=== PATIENT | male | born 1940 | race Caucasian/White ===

== ENCOUNTER → 2019-03-30 | Outpatient (CLI) | payer OTHER ==
[~2019-03-30] VITALS: Ht 175.3 cm; Wt 74.8 kg
[~2019-03-30] MED LIST: ASPIR 8181 MG PO; CILOSTAZOL 100100 M1 PO; COZAAR 25 MG TA25 M1 PO; LIPITOR 20 MG T20 M1 PO; NEURONTIN 300300 M1 PO; NEURONTIN600 MG PO; NORVASC5 MG PO; PLAVIX 75 MG TA75 M1 PO; RABEPRAZOLE SOD20 MG PO; ZYLOPRIM300 MG PO
--- NOTE | 2019-03-31 15:37 | P ---
[facility] [place] [place] [address] PROCEDURE REPORT Name: ANTIONETTE BETTENCOURT Room #: REG [facility]#: [id number] Admission: 03/30/19 ������������������ Attend Phys: Juan José Nelson MD Discharge: ������������������ Date of : 40 Report #: [id number] THIS REPORT FOR: //name// CC: Azam Nelson OUTPATIENT UPPER ENDOSCOPY REPORT BRIEF HISTORY: The patient is a 78-year-old male with a history of Aponte esophagus for surveillance. PREOPERATIVE DIAGNOSIS: Aponte esophagus. POSTOPERATIVE DIAGNOSES: 1. A short segment Aponte esophagus. 2. Small hiatus hernia. 3. Diffuse gastritis. MEDICATIONS: Deep sedation with propofol per anesthesia. SPECIMEN: Biopsies of Aponte esophagus. ESTIMATED BLOOD LOSS: 3 mL. PROCEDURE: EGD with biopsy. FINDINGS: Prior to propofol sedation, procedure of upper endoscopy was discussed with the patient as well as potential risks and its complications. He indicates he understands and desires to proceed. DESCRIPTION OF PROCEDURE: With the patient in left lateral decubitus position, the Olympus video endoscope was inserted in the cervical esophagus under direct vision without difficulty. Examination of this organ through its entire length revealed the normal esophageal mucosa down to the squamocolumnar junction. At the squamocolumnar junction, it was noted to be moderately irregular, especially on one wall of the esophagus. There was a very irregular squamocolumnar junction and then several islands of gastric-type mucosa in the distal esophagus. This was not completely circumferential and involved less than 2 cm in the distal esophagus in terms of length. Multiple biopsies were obtained. I also might point out the mucosa was flat. No ulcers, strictures, or masses were seen. Random biopsies obtained in the Aponte mucosa. Scope was advanced into a 2-3 cm sliding type hiatus hernia. Mucosa in the hernia was unremarkable. The scope was then advanced in the stomach and was examined on the end view as well as retroflexed views. There was a pattern of a diffuse gastritis. No ulcers or erosions were seen. Biopsies in the past were negative for H. pylori. Upon retroflexion, no mass lesions were seen. The pylorus, duodenal bulb, and [facility] [address] [place] [address] PROCEDURE REPORT Name: ANTIONETTE BETTENCOURT Room #: REG [facility].#: [id number] Admission: 03/30/19 ������������������ Attend Phys: Juan José Nelson MD Discharge: ������������������ Date of : 40 Report #: [id number] postbulbar duodenal sweep were inspected and noted to be unremarkable. At that point, the scope was slowly withdrawn and careful circumferential views confirmed the above findings. The patient tolerated the procedure well. CONDITION OF THE PATIENT UPON DISCHARGE: Following procedure, the patient was drowsy and will be discharged home when fully ambulatory. INSTRUCTIONS TO THE PATIENT AND FAMILY AT THE TIME OF DISCHARGE: Biopsies obtained of the Aponte is noted. We will follow up on pathology. If there is no evidence of dysplasia, he should return in 3 years for a surveillance exam. If there is evidence of dysplasia, further intervention or evaluation may be required. He should continue with his PPI daily for control of reflux symptoms. He will follow up with Dr. Azam Hoffman and proceed with colonoscopy at this time. ��������������������������������������������� <ELECTRONICALLY SIGNED> ���������������������������������������� By: Juan José Nelson MD ��������������������������������������������� 03/31/19 1537 [id number] Juan José Nelson MD /nt
--- NOTE | 2019-03-31 15:37 | P ---
[facility] [place] [address] [place] [address] PROCEDURE REPORT Name: ANTIONETET BETTENCOURT Room #: REG [facility]#: [id number] Admission: 03/30/19 ������������������ Attend Phys: Juan José Nelson MD Discharge: ������������������ Date of : 40 Report #: [id number] THIS REPORT FOR: //name// CC: KAIN Nelson OUTPATIENT COLONOSCOPY REPORT BRIEF HISTORY: The patient is a 78-year-old male for high risk screening. He has a prior a prior history of 5 adenomas for high risk screening. PREOPERATIVE DIAGNOSIS: High risk screening colonoscopy. POSTOPERATIVE DIAGNOSES: 1. Multiple colon polyps. 2. Mild to moderate sigmoid diverticulosis coli. 3. Small internal hemorrhoids. MEDICATIONS: Deep sedation with propofol per anesthesia. SPECIMENS: 1. Sessile polyp at 70 cm. 2. Diminutive polyp, cecum. 3. Sessile polyp, proximal ascending colon. 4. Diminutive polyp, 40 cm. ESTIMATED BLOOD LOSS: 3 mL. PROCEDURE: Colonoscopy to cecum and terminal ileum with snare polypectomy and biopsy. FINDINGS: Prior to propofol sedation, procedure of colonoscopy discussed with the patient as well as potential risks and its complications. He indicates he understands and desires to proceed. DESCRIPTION OF PROCEDURE: With the patient in left lateral decubitus position, digital examination was completed, which revealed no abnormalities. Subsequently, the Olympus video colonoscope was introduced in the rectum, advanced under direct vision to the cecum. Done with minimal difficulty. The cecum was identified by the ileocecal valve and the appendiceal orifice. I was able to advance the scope into the distal segment of the terminal ileum, which was inspected and noted to be unremarkable. At that point, the scope was slowly withdrawn and careful circumferential views obtained including retroflexion of the scope in the ascending colon. Upon slow withdrawal of the scope, the prep was noted to be excellent. The mucosa was within normal limits, normal vascular pattern, normal light reflex. Upon withdrawal of the scope, he was found to [facility] [address] [place] [address] PROCEDURE REPORT Name: ANTIONETTE BETTENCOURT Room #: REG [facility].#: [id number] Admission: 03/30/19 ������������������ Attend Phys: Juan José Nelson MD Discharge: ������������������ Date of : 40 Report #: [id number] have a diminutive polyp and the cecum was removed with biopsy forceps. In the very proximal ascending colon was a linear polyp. It was about 8-10 mm in length and about 3-4 mm in width and removed in a piecemeal fashion with cold snare and biopsy forceps. The scope was further withdrawal, no additional abnormalities were seen until the descending colon was reached and at 70 cm, a somewhat bulky 5-6 mm sessile polyp was seen and removed by cold snare polypectomy. Scope was further withdrawn and no additional abnormalities were seen until the sigmoid colon was reached, at which point a diminutive polyp was seen and removed with biopsy forceps. Also, he was noted to have moderately severe diverticular disease without endoscopic evidence of diverticulitis. The scope was withdrawn in the rectum, but upon retroflexion, small hemorrhoids were seen. Scope was withdrawn. The patient tolerated the procedure well. CONDITION OF THE PATIENT UPON DISCHARGE: Following procedure, the patient drowsy, aroused, conversant and will be discharged home when fully ambulatory. INSTRUCTIONS TO THE PATIENT AND FAMILY AT THE TIME OF DISCHARGE: This patient has a history of 5 adenomas lifetime, 4 polyps were identified and removed today. We will follow up on the path and make further recommendations. If 3 or more adenomas, he should return in 3 years. Otherwise, he should return for followup in 5 years. Last colonoscopy was approximately 5 years ago. Withdrawal time from the cecum was 10 minutes 37 seconds. ��������������������������������������������� <ELECTRONICALLY SIGNED> ���������������������������������������� By: Juan José Nelson MD ��������������������������������������������� 03/31/19 1537 [id number] Juan José Nelson MD /nt
--- NOTE | 2019-04-01 19:06 | PATH ---
[facility] [address] [place] [address] PATHOLOGY RPT PROCEDURE Name: CHARLIE DORANTES Room #: REG [facility].#: [id number] ������������������ Admission: 03/30/19 ������������������ Date of : 40 Discharge: Report #: [id number] Path Case #: [id number] [facility] Accession Number: [id number] . 01 Material submitted: . PART A: esophagus - BIOPSY DISTAL ESOPHAGUS HX BARRETTS. Modifiers: distal PART B: colon - POLYP AT 70CM PART C: cecum - BIOPSY POLYP AT CECUM PART D: colon - POLYP AT PROXIMAL ASCENDING COLON. Modifiers: proximal, ascending PART E: colon - BIOPSY POLYP AT 40CM . 01 Clinical history: . Preop DX: Hx: Polyps, Barretts esophagus Postop DX: Barretts esoph, hiatus hernia, gastritis, colon polyps, diverticulosis, hemorrhoids . 02 Diagnosis: A. Gastroesophageal mucosa, distal esophagus history of Aponte's, endoscopic biopsy: - Specialized columnar epithelium with intestinal metaplasia, consistent with Aponte's metaplasia. - Negative for dysplasia. - Squamous mucosa with mild esophagitis. . B. Polyp, at 70 cm, endoscopic biopsy: - Tubular adenoma. - Negative for high-grade dysplasia. . C. Polyp, at cecum, endoscopic biopsy: - Tubular adenoma. - Negative for high-grade dysplasia. . D. Polyp, at proximal ascending colon, endoscopic biopsy: - Tubular adenoma. - Negative for high-grade dysplasia. . E. Polyp, at 40 cm, endoscopic biopsy: - Tubular adenoma. - Negative for high-grade dysplasia. . 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 02 Electronically signed: . Lo Valadez MD, Pathologist NPI- [id number] [address] [address] PATHOLOGY RPT PROCEDURE Name: CHARLIE DORANTES Room #: REG [facility]#: [id number] ������������������ Admission: 03/30/19 ������������������ Date of : 40 Discharge: Report #: [id number] Path Case #: [id number] . 01 Gross description: . A. Received in formalin labeled "Charlie Dorantes, BX distal esophagus Hx Barretts," are five fragments of -brown soft tissue measuring 1.0 x 0.6 x 0.2 cm in aggregate dimensions and ranging from 0.2 to 0.6 cm in maximum dimension. The specimen is submitted entirely in cassette A1. . B. Received in formalin labeled "Charlie Dorantes, polyp at 70 cm," are three segments of -brown soft tissue measuring 0.8 x 0.7 x 0.3 cm in aggregate dimensions and ranging from 0.3 to 0.8 cm in maximum dimension. The largest segment is inked and trisected, and the specimen is submitted entirely in cassette B1. . C. Received in formalin labeled "Senthil Dorantesd, BX polyp at cecum," is a segment of -brown soft tissue measuring 0.5 x 0.2 x 0.2 cm in greatest dimensions. The specimen is submitted entirely in cassette C1. . D. Received in formalin labeled "SegunchSenthild, polyp at proximal ascending colon," are multiple fragments of soft tissue measuring 1.4 x 0.8 x 0.3 cm in aggregate dimensions and ranging from 0.1 to 0.9 cm in maximum dimension. The specimen is submitted entirely in cassette D1. The smallest fragments may not survive processing. . E. Received in formalin labeled "Senthil Dorantesd, BX polyp at 40 cm," is a segment of -brown soft tissue measuring 0.4 x 0.3 x 0.2 cm in greatest dimensions. The specimen is submitted entirely in cassette E1. (DAC; 03/31/2019) XDC/XMA 03/31/2019 [facility] . 02 Pathologist provided ICD-10: K22.70, K20.9, D12.6, D12.0, D12.2 . 02 CPT . 593701, 228559, 504114, 855127, 091920 Specimen Comment: A courtesy copy of this report has been sent to Specimen Comment: [phone], . Specimen Comment: Report sent to / DR MEHTA Performed at: [address], [place], [place] [id number] MD Miguel Torres MD Phone: [phone] Performed at: [address] [id number] MD Lo Valadez MD Phone: [phone]
== END | disposition home or self-care (01) ==
LOC: GI 06:38
DX: Z12.11 Encounter for screening for malignant neoplasm of colon (principal); D12.4 Benign neoplasm of descending colon; D12.0 Benign neoplasm of cecum; D12.2 Benign neoplasm of ascending colon; D12.5 Benign neoplasm of sigmoid colon; K57.30 Diverticulosis of large intestine without perforation or abscess without bleeding; K64.8 Other hemorrhoids; K22.70 Barrett's esophagus without dysplasia; K44.9 Diaphragmatic hernia without obstruction or gangrene; K29.70 Gastritis, unspecified, without bleeding; M10.9 Gout, unspecified; I10 Essential (primary) hypertension; E78.5 Hyperlipidemia, unspecified; I25.10 Atherosclerotic heart disease of native coronary artery without angina pectoris; K21.9 Gastro-esophageal reflux disease without esophagitis; Z87.891 Personal history of nicotine dependence; Z98.890 Other specified postprocedural states; Z79.82 Long term (current) use of aspirin; Z79.899 Other long term (current) drug therapy
CPT/HCPCS: 62110; 62900